=== PATIENT | male | born 1950 | race Caucasian/White ===

== ENCOUNTER 2017-08-12 15:39 | Outpatient (CLI) | payer MEDICARE | END 2017-08-12 15:40 | disposition home or self-care (01) | LOC: BICULT 15:39 | PROVIDERS: ATTEND Internal Medicine Geriatric Medicine | DX: R42 Dizziness and giddiness (principal); R09.89 Other specified symptoms and signs involving the circulatory and respiratory systems | CPT/HCPCS: 93880 ==

== ENCOUNTER 2018-04-07 11:04 | Outpatient (CLI) | payer MEDICARE ==
[2018-04-07] MEDS ORDERED: Gadobenate Dimeglumine 529 MG/1 ML (20ML VIAL) ONE (12:37)
--- NOTE | 2018-04-07 14:28 | MRI ---
MRI OF THE BRAIN WITHOUT AND WITH CONTRAST: Comparison: None. History: Dizzy spells and headache for two months. Technique: Multiplanar, multisequence MRI images were obtained of the brain without and with IV contr ast. FINDINGS: Brain demonstrates normal signal intensity on obtained sequences. No restricted diffusion or abnormal enhancement are seen. There is no evidence of hydrocephalus, intracranial hemorrhage, or extraaxial fluid collections. The expected flow voids are present. The corpus callosum, pituitary and craniocervical junction are unrem arkable. The calvarium and overlying soft tissues are unremarkable. Mucosal thickening is seen in the posterio r ethmoid air cells. The other paranasal sinuses and mastoid air cells are well aerated. IMPRESSION: No evidence of acute intracranial abnormality. POS: [facility]
== END 2018-04-07 11:05 | disposition home or self-care (01) ==
LOC: BICMRI 11:04
PROVIDERS: ATTEND Family Medicine
DX: R42 Dizziness and giddiness (principal); R51 Headache
CPT/HCPCS: 70553; A9579

== ENCOUNTER 2019-03-30 11:55 | Outpatient (CLI) | payer MEDICARE ==
--- NOTE | 2019-03-30 12:31 | RAD ---
XR Cerv Sp Ap Lat STANDARD HISTORY: Neck pain radiating to left shoulder. COMPARISON: None. FINDINGS: The vertebral bodies are normal in height. There is severe disc narrowing at C6-7 and C7-T1 . Moderate degenerative facet changes are present. IMPRESSION: Moderate arthritic changes of the lower cervical spine.
--- NOTE | 2019-03-30 12:32 | RAD ---
XR Knee Lt 3 View HISTORY: Left knee pain x1 week. COMPARISON: None. FINDINGS: There are minimal arthritic changes of the knee with tiny patellofemoral spurs and minimal medial compartment narrowing. No evidence of joint effusion or acute findings. Incidental note is made of a small exostosis of the tibia near the tibiofibular joint. IMPRESSION: Minimal arthritic changes of the knee. No acute process.
== END 2019-03-30 11:56 | disposition home or self-care (01) ==
LOC: BICRAD 11:55
PROVIDERS: ATTEND Family Medicine
DX: M54.2 Cervicalgia (principal); M25.562 Pain in left knee; M17.12 Unilateral primary osteoarthritis, left knee; M47.812 Spondylosis without myelopathy or radiculopathy, cervical region
CPT/HCPCS: 36415; 72040; 80053; 83036; 85025

== ENCOUNTER 2019-04-13 12:07 | Outpatient (CLI) | payer MEDICARE ==
--- NOTE | 2019-04-13 13:39 | MRI ---
MRI cervical spine noncontrast: DATE: 04/13/2019 HISTORY: 69-year-old male with left cervical radiculopathy and cervicalgia. FINDINGS: Cervical spinal cord is normal in size and signal. Vertebral body heights are maintained. Moderate to severe disc space narrowing at C6-7. All the rest of the disc spaces are maintained. Moderate to severe left facet DJD at C3-4. Moderate left facet DJD at C4-5 and C5-6. Moderate right facet DJD at C5-6. Moderate bilateral facet DJD at C7-T1, right greater than left. Alignment is normal. Vertebral body heights are maintained. C1-2: No high-grade central stenosis. C2-3: No central stenosis. No right neural foraminal stenosis. Mild to moderate left neural foraminal stenosis due to small left uncinate process osteophytes. C3-4: No high-grade central stenosis or high-grade right neural foraminal stenosis. Small to moderate -sized left uncinate process osteophytes and left facet hypertrophy result in severe left neural foraminal stenosis. C4-5: Mild, shallow broad-based disc-osteophytic bar complex encroaches upon ventral aspect of spinal canal. Mild ligamentum flavum thickening encroaches upon the posterior aspect of spinal canal. Moderate central spinal canal stenosis. Mild to moderate right neural foraminal stenosis. Small to mo derate-sized left uncinate process osteophytes and left facet degenerative hypertrophy result in severe left neural foraminal stenosis. C5-6: Mild, shallow broad-based disc-osteophytic bar complex encroaches upon ventral aspect of spinal canal. Mild central spinal canal stenosis. Mild to moderate right neural foraminal stenosis. Small to moderate-sized left uncinate process osteophytes and left facet degenerative hypertrophy result in severe left neural foraminal stenosis. C6-7: Irregularly-shaped broad-based disc-osteophytic bar complex protrudes into the spinal canal, es pecially at the left paracentral location where there is a focal prominent component of disc herniation or disc-osteophyte complex. There is displacement of the spinal cord posteriorly, and mild ly decreased AP diameter of the spinal cord especially on the left side. Moderate-severe central spinal canal stenosis. Moderate to large bilateral uncinate process osteophytes result in severe bila teral neural foraminal stenosis, left worse than right. C7-T1: No central stenosis. No high-grade right neural foraminal stenosis. Moderate size left uncinat e process osteophytes. Mild right neural foraminal stenosis. Mild to moderate left neural foraminal stenosis. IMPRESSION: 1. Multilevel severe left neural foraminal stenosis at C3-4, C4-5, C5-6, and C6-7. 2. Cervical spondylosis consisting of multilevel bilateral moderate facet osteoarthrosis, but degener ative disc disease isolated to the C6-C7 level. 3. At C5-6 there is central and left paracentral focal disc herniation posteriorly displacing the spi nal cord
== END 2019-04-13 12:08 | disposition home or self-care (01) ==
LOC: BICMRI 12:07
PROVIDERS: ATTEND Family Medicine
DX: M47.22 Other spondylosis with radiculopathy, cervical region (principal); M48.02 Spinal stenosis, cervical region; M50.122 Cervical disc disorder at C5-C6 level with radiculopathy
CPT/HCPCS: 72141

== ENCOUNTER 2019-09-10 12:33 | Outpatient (CLI) | payer MEDICARE ==
--- NOTE | 2019-09-10 14:15 | MRI ---
MRI LEFT KNEE: Date: 09/10/2019 PROVIDED CLINICAL HISTORY: Left knee pain. FINDINGS: The anterior cruciate ligament, posterior cruciate ligament, medial collateral ligament, and lateral collateral ligamentous complex demonstrate an intact MR appearance, as does the extensor mechanism. T here is thickening and signal inhomogeneity involving the proximal patellar tendon reflecting tendino sis. Mucinous degeneration of the anterior cruciate ligament is seen involving the footprint. The medial and lateral menisci demonstrate no definite evidence for tear. No focal articular cartilage defect is apparent. There is articular cartilage irregularity involving the central weightbearing portions of the medial femoral articular cartilage. There is a moderate knee joint effusion. There is [id number] inhomogeneous signal present posterior to the proximal anterior cruciate ligam ent, cranial to the posterior cruciate ligament, which could reflect focal synovitis. There is patchy increased signal intensity on fluid sensitive sequences involving the proximal soleus muscle that may reflect muscular strain. Regional marrow signal appears unremarkable. IMPRESSION: 1. Patellar tendinosis. 2. Medial femoral articular chondrosis. 3. Moderate knee joint effusion. 4. Possible low grade muscular strain involving proximal soleus. POS: [facility]I
== END 2019-09-10 12:34 | disposition home or self-care (01) ==
LOC: BICMRI 12:33
PROVIDERS: ATTEND Orthopaedic Surgery
DX: M25.562 Pain in left knee (principal); M25.462 Effusion, left knee; M24.10 Other articular cartilage disorders, unspecified site; M67.962 Unspecified disorder of synovium and tendon, left lower leg

== ENCOUNTER 2020-10-03 09:33 | Outpatient (CLI) | payer MEDICARE ==
[2020-10-03 12:15] LABS: Hemoglobin 14.3 g/dL (13.5-17.5); Mean Corpuscular HGB CONC 32.4 g/dL (32.0-36.0); Mean Corpuscular Hemoglobin 28.7 pg (27.0-33.0); Mean Corpuscular Volume 88.4 fl (81.2-95.1); Mean Platelet Volume 10.4 fl (7.4-10.4); Platelet Count 231 10x3/uL (150-450); RBC Distribution Width 12.1 % (11.5-14.5); Red Blood Cell (RBC) Count 4.99 10x6/uL (4.32-5.72); White Blood Cell (WBC) Count 9.5 10x3/uL (3.5-10.5)
[2020-10-03 12:19] LABS: PTT 27.1 sec (22.0-33.0); Prothrombin Time 11.1 sec (9.5-12.1)
[2020-10-03 12:42] LABS: Anion Gap 14 mmol/L (10-20); BUN (Urea Nitrogen) 14 mg/dL (8.4-25.7); Calc. Creatinine Clearance 0 mL/min (70-130); Carbon Dioxide 25 mmol/L (23-31); Chloride 102 mmol/L (98-107); Glucose 206 mg/dL (83-110); Potassium 4.3 mmol/L (3.5-5.1); Sodium 137 mmol/L (136-145)
[2020-10-03 12:43] LABS: Bilirubin Neg (Negative); Blood, Urine 50 (Negative); Clarity Clear (Clear); Glucose, Urine (Dipstick) >=1000 mg/dL (Negative); Ketone, Urine Negative (Negative); Leukocyte Negative (Negative); Nitrite Negative (Negative); Protein, Urine (Dipstick) 30 mg/dl (Neg-Trace); Urobilinogen Normal mg/dL (Less than 2)
[2020-10-03 12:54] LABS: Bacteria/HPF Rare-Few HPF (None Seen); RBC/HPF 0-3 HPF (0-3); Squamous Epithelial 0-3 HPF (0-3); Transitional Epithelial 0-3 HPF (None Seen); WBC/HPF 0-3 HPF (0-3)
[2020-10-03 12:55] LABS: Mucous/LPF Few LPF (<2+)
[2020-10-03 18:29] LABS: SARS-CoV-2 PCR by NAA Not Detected (NotDetected)
== END 2020-10-03 09:34 | disposition home or self-care (01) ==
LOC: LABBT 09:33
PROVIDERS: ATTEND Urology
DX: Z01.818 Encounter for other preprocedural examination (principal); N40.1 Benign prostatic hyperplasia with lower urinary tract symptoms; R35.1 Nocturia; Z20.822 Contact with and (suspected) exposure to COVID-19
CPT/HCPCS: 80048; 81001; 85027; 85610; 85730; 87086; 93005; U0003; U0005; 87635; 93010

== ENCOUNTER 2020-10-06 06:16 | Observation (INO) | payer MEDICARE ==
[2020-10-06] MEDS ORDERED: Levofloxacin 500 mg/D5W 100 ml Premix Bag ONE (07:12)
[2020-10-06] MEDS ORDERED: B & O ONE (08:31)
[2020-10-06] MEDS ORDERED: Iothalamate Meglumine 60% 50 ML VIAL FS ONE (08:31)
[2020-10-06] MEDS ORDERED: Fentanyl 100 MCG/2 ML VIAL ONE ×2 (08:33→11:09)
[2020-10-06] MEDS ORDERED: PROPOFOL 200 MG/20 ML VIAL ONE (08:45)
[2020-10-06] MEDS ORDERED: Succinylcholine 200 MG/10 ml SYRINGE FS ONE (08:45)
[2020-10-06] MEDS ORDERED: Lidocaine 1% PF 5 ML VIAL ONE (08:45)
[2020-10-06] MEDS ORDERED: Ondansetron PF 4 MG/2 ML Vial ONE (08:45)
[2020-10-06] MEDS ORDERED: Metoclopramide HCl 10 MG/2 ML VIAL ONE (08:45)
[2020-10-06] MEDS ORDERED: Dextrose 50% Abboject 50 ML SYRINGE SLOW IVP PRN (10:34)
[2020-10-06] MEDS ORDERED: Bisacodyl 10 MG SUPP PR PRN (10:34)
[2020-10-06] MEDS ORDERED: Ondansetron PF 4 MG/2 ML Vial IVP PRN (10:34)
[2020-10-06] MEDS ORDERED: Phenazopyridine HCl 100 MG TAB PO PRN (10:34)
[2020-10-06] MEDS ORDERED: Oxybutynin 5 MG TAB PO PRN (10:34)
[2020-10-06] MEDS ORDERED: Morphine 4 MG/ML VIAL SLOW IVP PRN (10:34)
[2020-10-06] MEDS ORDERED: HumaLOG 300 UNITS/3 ML VIAL SC PRN (10:34)
[2020-10-06] MEDS ORDERED: Mag-Al 1200 mg/1200 mg/30 ML UDCUP PO PRN (10:34)
[2020-10-06] MEDS ORDERED: diphenhydrAMINE 25 MG CAP PO PRN (10:34)
[2020-10-06] MEDS ORDERED: hydrALAZINE 20 MG/ML VIAL SLOW IVP PRN (10:34)
[2020-10-06] MEDS ORDERED: Dextrose 5% in Water 1,000 ML IV PRN (10:34)
[2020-10-06] MEDS ORDERED: Acetaminophen 500 MG TAB PO PRN (10:34)
[2020-10-06] MEDS ORDERED: Hyoscyamine Sulfate SL 0.125 mg Tablet SL PRN (10:34)
[2020-10-06] MEDS ORDERED: traMADol HCl 50 MG TAB PO PRN (10:37)
[2020-10-06] MEDS ORDERED: Ondansetron HCl/PF 4 MG/2 ML Vial IVP PRN (10:51)
[2020-10-06] MEDS ORDERED: Promethazine HCl 25 MG/ML VIAL SLOW IVP PRN (10:51)
[2020-10-06] MEDS ORDERED: HYDROmorphone 2 MG/ML VIAL SLOW IVP PRN (10:51)
[2020-10-06] MEDS ORDERED: Promethazine HCl 25 MG/ML VIAL IM PRN (10:51)
[2020-10-06] MEDS ORDERED: Ketorolac Tromethamine 30 MG/ML VIAL IVP PRN (10:51)
[2020-10-06] MEDS ORDERED: Phenazopyridine HCl 100 MG TAB ONE (11:24)
[2020-10-06] MEDS ORDERED: Hyoscyamine Sulfate SL 0.125 mg Tablet ONE (12:28)
[2020-10-06] MEDS ORDERED: Oxybutynin 5 MG TAB ONE (15:21)
[2020-10-06 16:55] VITALS: BMI 29.6
[2020-10-06] MEDS ORDERED: Atorvastatin Calcium 10 MG TAB PO SCH (21:00)
[2020-10-06] MEDS: Docusate 100 MG CAP PO SCH (22:27)
[2020-10-07 07:52] VITALS: TEMP 97.9
[2020-10-07] MEDS: Docusate 100 MG CAP PO SCH (08:17)
[2020-10-07] MEDS ORDERED: Lisinopril 5 MG TAB PO SCH (09:00)
[2020-10-07 11:21] VITALS: BP 106/69
[2020-10-08] MEDS ORDERED: metFORMIN 500 MG TAB PO SCH (08:00)
== END 2020-10-07 14:10 | disposition home or self-care (01) ==
LOC: SDC 06:16 → SURG B 10:34
PROVIDERS: ADMIT Urology; ATTEND Urology
PROC: 0VT08ZZ Resection of Prostate, Via Natural or Artificial Opening Endoscopic (ICD-10-PCS; principal; 2020-10-06)
DX: N40.1 Benign prostatic hyperplasia with lower urinary tract symptoms (principal); R35.1 Nocturia; R39.15 Urgency of urination; R39.11 Hesitancy of micturition; R39.12 Poor urinary stream; I10 Essential (primary) hypertension; R73.03 Prediabetes; G47.30 Sleep apnea, unspecified; Z79.84 Long term (current) use of oral hypoglycemic drugs; Z79.899 Other long term (current) drug therapy; Z88.7 Allergy status to serum and vaccine
CPT/HCPCS: 52601; 82962 ×2; 88305; 96365; G0378 ×2; Q9961; 36416; J1956; J2405; J2704; J2765; J3010

== ENCOUNTER 2022-01-18 10:20 | Outpatient (CLI) | payer MEDICARE | END 2022-01-18 10:21 | disposition home or self-care (01) | LOC: LABBT 10:20 | PROVIDERS: ATTEND Urology | DX: Z01.818 Encounter for other preprocedural examination (principal); Z20.822 Contact with and (suspected) exposure to COVID-19 | CPT/HCPCS: 80048; 85027; 85610; 86850; 86900; 86901; 87811; 93005; 93010 ==

== ENCOUNTER 2022-01-19 05:33 | Day surgery (SDC) | payer MEDICARE ==
[2022-01-18 12:09] LABS: Hemoglobin 15.7 g/dL (13.5-17.5); Mean Corpuscular HGB CONC 33.5 g/dL (32.0-36.0); Mean Corpuscular Hemoglobin 29.2 pg (27.0-33.0); Mean Corpuscular Volume 87.2 fl (81.2-95.1); Mean Platelet Volume 9.9 fl (7.4-10.4); Platelet Count 249 10x3/uL (150-450); RBC Distribution Width 12.7 % (11.5-14.5); Red Blood Cell (RBC) Count 5.37 10x6/uL (4.32-5.72); White Blood Cell (WBC) Count 11.3 10x3/uL (3.5-10.5)
[2022-01-18 12:20] LABS: Prothrombin Time 10.5 sec (9.5-12.1)
[2022-01-18 12:26] LABS: Anion Gap 17 mmol/L (10-20); BUN (Urea Nitrogen) 16 mg/dL (8.4-25.7); Calc. Creatinine Clearance 0 mL/min (70-130); Calcium 9.9 mg/dL (7.8-10.44); Carbon Dioxide 26 mmol/L (23-31); Chloride 100 mmol/L (98-107); Estimated GFR 70; Glucose 146 mg/dL (83-110); Potassium 4.8 mmol/L (3.5-5.1); Sodium 138 mmol/L (136-145)
[2022-01-19] MEDS ORDERED: Gentamicin 160 MG in Sodium Chloride 0.9% 100 ML IVPB SCH (06:30)
[2022-01-19] MEDS ORDERED: CEFAZOLIN 2 GM in Sodium Chloride 0.9% 100 ML IVPB SCH (06:30)
[2022-01-19] MEDS ORDERED: Sodium Chloride 0.9% 100 ML ONE (06:38)
[2022-01-19] MEDS ORDERED: Lidocaine 1% MPF 2 ML VIAL ONE ×2 (06:38→07:46)
[2022-01-19] MEDS ORDERED: CEFAZOLIN 2 GM VIAL ONE (06:38)
[2022-01-19] MEDS ORDERED: HYDROmorphone 0.5 MG/0.5 ML SYRINGE ONE (06:57)
[2022-01-19] MEDS ORDERED: fentaNYL Citrate/PF 100 MCG/2 ML SYRINGE ONE (06:57)
[2022-01-19] MEDS ORDERED: Bupivacaine/Epinephrine 0.25% 30 ML VIAL ONE (07:04)
[2022-01-19] MEDS ORDERED: Iopamidol 30 ML ONE (07:04)
[2022-01-19] MEDS ORDERED: Famotidine/PF 20 mg/2ml Vial ONE (07:30)
[2022-01-19] MEDS ORDERED: SUGAMMADEX SODIUM 200 MG/2 ML VIAL ONE (07:30)
[2022-01-19] MEDS ORDERED: Metoclopramide HCl 10 MG/2 ML VIAL ONE (07:46)
[2022-01-19] MEDS ORDERED: Rocuronium Bromide 10 MG/ML (10ML VIAL) ONE (07:46)
[2022-01-19] MEDS ORDERED: Ondansetron PF 4 MG/2 ML Vial ONE (07:46)
[2022-01-19] MEDS ORDERED: Dexamethasone 20 MG/5 ML VIAL ONE (07:46)
[2022-01-19] MEDS ORDERED: PROPOFOL 200 MG/20 ML VIAL ONE (07:46)
[2022-01-19] MEDS ORDERED: Succinylcholine 200 MG/10 ml SYRINGE FS ONE (07:46)
[2022-01-19] MEDS ORDERED: Neostigmine Methylsulfate 3 MG/3 ML SYRINGE ONE (07:46)
[2022-01-19] MEDS ORDERED: Glycopyrrolate 0.2 MG/ML 5 ML SYRINGE ONE (07:46)
[2022-01-26 10:16] LABS: CA Oxalate Monohydrate 100 % (.); Color Brown (.); Stone Weight 450 mg (.)
== END 2022-01-19 13:15 | disposition home or self-care (01) ==
LOC: SDC 05:33
PROVIDERS: ATTEND Urology
PROC: 0TC03ZZ Extirpation of Matter from Right Kidney, Percutaneous Approach (ICD-10-PCS; principal; 2022-01-19)
DX: N20.0 Calculus of kidney (principal); N32.81 Overactive bladder; N40.1 Benign prostatic hyperplasia with lower urinary tract symptoms; N13.8 Other obstructive and reflux uropathy; R35.1 Nocturia; I10 Essential (primary) hypertension; E11.9 Type 2 diabetes mellitus without complications; K21.9 Gastro-esophageal reflux disease without esophagitis; G47.30 Sleep apnea, unspecified; E78.5 Hyperlipidemia, unspecified; E89.0 Postprocedural hypothyroidism; G89.29 Other chronic pain; M54.9 Dorsalgia, unspecified; E66.09 Other obesity due to excess calories; Z68.32 Body mass index [BMI] 32.0-32.9, adult; Z86.718 Personal history of other venous thrombosis and embolism; Z79.82 Long term (current) use of aspirin; Z79.84 Long term (current) use of oral hypoglycemic drugs; Z79.899 Other long term (current) drug therapy; Z88.7 Allergy status to serum and vaccine
CPT/HCPCS: 50080; 76000; 80048; 82365; 85027; 85610; 86850; 86900; 86901; 86920; C1769; C2617; 88300; J0690; J1100; J1170; J1580; J2405; J2704; J2765; J3490; Q9967; S0028

== ENCOUNTER 2022-01-20 14:39 | Emergency (ER) | payer MEDICARE ==
[2022-01-20] MEDS ORDERED: Iopamidol-370 76% 500 ML 1 ML ONE (15:28)
[2022-01-20 16:08] LABS: #Basophils 0.1 thou/uL (0.0-0.2); #Eosinphils 0.5 thou/uL (0.0-0.7); #Lymphocytes 2.6 thou/uL (1.20-3.40); #Monocytes 0.7 thou/uL (0.11-0.59); %Basophils 0.7 % (0.0-1.0); %Eosinophils 5.4 % (0.0-10.0); %Lymphocytes 26.1 % (21.0-51.0); %Monocytes 6.9 % (0.0-10.0); %Neutrophils 60.9 % (42.0-75.0); Hemoglobin 13.4 g/dL (14.0-18.0); Mean Corpuscular HGB CONC 33.9 g/dL (32.0-36.0); Mean Corpuscular Volume 91.2 fL (78.0-98.0); Mean Platelet Volume 7.6 fL (7.4-10.4); Platelet Count 207 thou/uL (130-400); Red Blood Cell (RBC) Count 4.34 mill/uL (4.70-6.10); White Blood Cell (WBC) Count 9.8 thou/uL (4.8-10.8)
[2022-01-20 16:27] LABS: ALT (SGPT) 21 U/L (8-55); AST (SGOT) 24 U/L (5-34); Albumin 4.2 g/dL (3.4-4.8); Alkaline Phosphatase 63 U/L (40-110); Anion Gap 16 mmol/L (10-20); BUN (Urea Nitrogen) 17 mg/dL (8.4-25.7); Bilirubin, Total 0.5 mg/dL (0.2-1.2); Calc. Creatinine Clearance 0 mL/min (70-130); Calcium 9.6 mg/dL (7.8-10.44); Carbon Dioxide 21 mmol/L (23-31); Chloride 105 mmol/L (98-107); Estimated GFR 65; Globulin 3.4 g/dL (2.4-3.5); Glucose 193 mg/dL (83-110); Protein, Total 7.6 g/dL (5.8-8.1); Sodium 138 mmol/L (136-145)
== END 2022-01-20 19:03 | disposition home or self-care (01) ==
LOC: ERS 14:39
DX: K59.00 Constipation, unspecified (principal); E11.9 Type 2 diabetes mellitus without complications; I10 Essential (primary) hypertension; Z79.84 Long term (current) use of oral hypoglycemic drugs; Z79.899 Other long term (current) drug therapy; Z79.82 Long term (current) use of aspirin
CPT/HCPCS: 36415; 74177; 80053; 85025; Q9967

== ENCOUNTER 2023-02-28 14:00 | Outpatient (CLI) | payer OTHER | END 2023-02-28 14:01 | disposition home or self-care (01) | LOC: ULT 14:00 | PROVIDERS: ATTEND Family Medicine | DX: R42 Dizziness and giddiness (principal); R09.89 Other specified symptoms and signs involving the circulatory and respiratory systems; J34.89 Other specified disorders of nose and nasal sinuses; I70.90 Unspecified atherosclerosis; W19.XXXA Unspecified fall, initial encounter | CPT/HCPCS: 70450; 93880 ==